=== PATIENT | male | born 1975 | race Caucasian/White ===

== ENCOUNTER 2021-09-26 07:30 | Day surgery (SDC) | payer OTHER ==
[2021-09-25 14:33] VITALS: BMI 25.1
[2021-09-26 07:54] VITALS: RESP 16
[2021-09-26] MEDS ORDERED: ERYTHROMYCIN 0.5% OPHTHALMIC OINTMENT 3.5 GM TUBE ONE (09:03)
[2021-09-26] MEDS ORDERED: ceFAZolin SODIUM 1 GM VIAL ONE ×2 (09:03→09:44)
[2021-09-26] MEDS ORDERED: EPINEPHrine/PF 1 MG/1 ML (1:1,000) AMPULE ONE (09:03)
[2021-09-26] MEDS ORDERED: TETRACAINE 0.5% OPHTH SOLN 2 ML BOTTLE ONE (09:05)
[2021-09-26] MEDS ORDERED: POVIDONE-IODINE 5% OPHTHALMIC PREP 30 ML SOLUTION ONE (09:05)
[2021-09-26] MEDS ORDERED: LIDOCAINE HCL 1%, 10 MG/ML (20ML VIAL) ONE (09:05)
[2021-09-26] MEDS ORDERED: BUPIVACAINE HCL 50 ML ONE (09:05)
[2021-09-26] MEDS ORDERED: MIDAZOLAM HCL 2 MG/2 ML SINGLE DOSE VIAL ONE (09:27)
[2021-09-26] MEDS ORDERED: FENTANYL CITRATE/PF 50 MCG/ML VIAL ONE (09:27)
[2021-09-26] MEDS ORDERED: PROPOFOL 20 ML ONE (09:46)
[2021-09-26 11:46] VITALS: TEMP 98.1
[2021-09-26] MEDS ORDERED: oxyCODONE HCL 5 MG TABLET PO PRN (12:12)
[2021-09-26] MEDS ORDERED: ONDANSETRON 4 MG/2 ML VIAL IVPUSH PRN (12:12)
[2021-09-26 13:00] VITALS: BP 102/70; PULSE 58
== END 2021-09-26 12:25 | disposition home or self-care (01) ==
LOC: FASU 07:30
PROVIDERS: ATTEND Ophthalmology
PROC: 08SN0ZZ Reposition Right Upper Eyelid, Open Approach (ICD-10-PCS; 2021-09-26)
PROC: 08U Eye, Supplement (ICD-10-PCS; principal; 2021-09-26 10:01)
DX: G51.0 Bell's palsy (principal); H16.8 Other keratitis
CPT/HCPCS: 94760